=== PATIENT | female | born 1940 | race Caucasian/White ===

== ENCOUNTER 2023-11-21 07:29 | Emergency (ER) | payer MEDICARE, OTHER ==
[2023-11-21] MEDS: methylPREDNISolone Sodium Succinate 40 MG/1 ML SDV IM ONE (08:11)
[2023-11-21] MEDS: Cyclobenzaprine 10 MG Tab PO ONE (08:11)
[2023-11-21] MEDS: Ketorolac 30 MG/ML SDV IM ONE (09:19)
== END 2023-11-21 09:45 | disposition home or self-care (01) ==
LOC: FB.ED 07:29
DX: M54.42 Lumbago with sciatica, left side (principal); Z79.899 Other long term (current) drug therapy
CPT/HCPCS: 96372; 99283; A9270; J1885; J2919